=== PATIENT | female | born 1995 | race American Indian/Alaskan Native ===

== ENCOUNTER 2016-05-05 22:07 | Emergency (ER) | payer SELFPAY ==
[2016-05-05 22:34] VITALS: BP 133/69
[2016-05-05 23:11] LABS: Basophils % (Auto) 0.7 % (0.0-1.8); Eosinophils % (Auto) 0.9 % (0.0-4.3); Hematocrit 41.4 % (30.3-42.9); Hemoglobin 13.5 gm/dl (10.1-14.3); Mean Corpuscular HGB Conc 33 % (30-34); Mean Corpuscular Hemoglobin 27 pg (28-32); Mean Corpuscular Volume 83 fl (79-97); Platelet Count 255 K/mm3 (140-440); Red Blood Count 4.96 M/mm3 (3.65-5.03); Red Cell Distribution Width 14.5 % (13.2-15.2); White Blood Count 12.2 K/mm3 (4.5-11.0)
[2016-05-05 23:29] LABS: Anion Gap 20 mmol/L; BUN/Creatinine Ratio 15.71; Blood Urea Nitrogen 11 mg/dL (7-17); Calcium 9.3 mg/dL (8.4-10.2); Carbon Dioxide 23 mmol/L (22-30); Chloride 99.2 mmol/L (98-107); Glucose 119 mg/dL (65-100); Sodium 138 mmol/L (137-145)
--- NOTE | 2016-05-07 13:33 | ED Elopement Review ---
ED Pt Elopement review - Results review Lab results: Laboratory Tests 05/05/16 05/05/16 23:00 23:00 WBC 12.2 H RBC 4.96 Hgb 13.5 Hct 41.4 MCV 83 MCH 27 L MCHC 33 RDW 14.5 Plt Count 255 Lymph % (Auto) 11.3 L [place] % (Auto) 3.1 Eos % (Auto) 0.9 Baso % (Auto) 0.7 Lymph # 1.4 [place] # 0.4 Eos # 0.1 Baso # 0.1 Seg Neutrophils % 84.0 H Seg Neutrophils # 10.3 H Sodium 138 Potassium 4.0 Chloride 99.2 Carbon Dioxide 23 Anion Gap 20 BUN 11 Creatinine 0.7 Estimated GFR > 60 BUN/Creatinine Ratio 15.71 Glucose 119 H Calcium 9.3 - Call Back decision Pt Call Back Decision: No action required
== END 2016-05-06 03:45 | disposition left against medical advice (07) ==
LOC: ED 22:07
DX: R11.2 Nausea with vomiting, unspecified (principal); R19.7 Diarrhea, unspecified; R51 Headache; Z53.21 Procedure and treatment not carried out due to patient leaving prior to being seen by health care provider
CPT/HCPCS: 36415; 80048; 85025